=== PATIENT | male | born 1980 | race Two or more races ===

== ENCOUNTER 2019-12-04 08:48 | Emergency (ER) | payer SELFPAY ==
[~2019-12-04] VITALS: Ht 165.1 cm; Wt 65.0 kg
[2019-12-04] MEDS ORDERED: CEFTRIAXONE SODIUM 250 MG/VIAL IM NR (11:00)
[2019-12-04] MEDS ORDERED: LIDOCAINE HCL/PF 1% 10 MG/ML 5ML VIAL INL NR (11:00)
[2019-12-04 11:17] VITALS: BP 135/68
== END 2019-12-04 11:17 | disposition home or self-care (01) ==
LOC: ER 08:48
DX: N45.1 Epididymitis (principal); N50.812 Left testicular pain
CPT/HCPCS: 76857; 76870; 93976; 96372; 99285; J0696; J3490